=== PATIENT | male | born 1990 | race Caucasian/White ===

== ENCOUNTER 2019-12-21 22:27 | Emergency (ER) | payer BC ==
[~2019-12-21] VITALS: Ht 160 cm; Wt 84.0 kg
[2019-12-21 23:01] VITALS: Ht 160 cm; Wt 84.0 kg
[2019-12-22 00:43] VITALS: BP 133/79
== END 2019-12-22 00:44 | disposition home or self-care (01) ==
LOC: ED 22:27
DX: S61.411A Laceration without foreign body of right hand, initial encounter (principal); X78.0XXA Intentional self-harm by sharp glass, initial encounter; Y93.89 Activity, other specified; Y92.89 Other specified places as the place of occurrence of the external cause; Y99.8 Other external cause status
CPT/HCPCS: 90715; J2001; Q0092